=== PATIENT | female | born 1970 | race Two or more races ===

== ENCOUNTER 2019-05-21 07:59 | Outpatient (CLI) | payer OTHER | END 2019-05-21 08:40 | disposition home or self-care (01) | LOC: LAB 07:59 | DX: E03.8 Other specified hypothyroidism (principal); D89.0 Polyclonal hypergammaglobulinemia; I10 Essential (primary) hypertension; D51.3 Other dietary vitamin B12 deficiency anemia; D51.0 Vitamin B12 deficiency anemia due to intrinsic factor deficiency; D55.0 Anemia due to glucose-6-phosphate dehydrogenase [G6PD] deficiency; D51.1 Vitamin B12 deficiency anemia due to selective vitamin B12 malabsorption with proteinuria; E06.3 Autoimmune thyroiditis; D50.8 Other iron deficiency anemias; N95.1 Menopausal and female climacteric states; Z12.73 Encounter for screening for malignant neoplasm of ovary; E22.1 Hyperprolactinemia; Z12.11 Encounter for screening for malignant neoplasm of colon ==

== ENCOUNTER → 2019-07-03 10:11 | Outpatient (CLI) | payer OTHER | END | disposition home or self-care (01) | LOC: LAB 10:11 | DX: D89.0 Polyclonal hypergammaglobulinemia (principal); I10 Essential (primary) hypertension; D51.3 Other dietary vitamin B12 deficiency anemia; N95.1 Menopausal and female climacteric states ==

== ENCOUNTER → 2021-07-12 09:20 | Outpatient (CLI) | payer OTHER ==
[~2021-07-12 09:20] MED LIST: NEURONTIN300 MG PO
== END | disposition home or self-care (01) ==
LOC: LAB 09:20
PROVIDERS: ATTEND Internal Medicine Hematology & Oncology
DX: D50.8 Other iron deficiency anemias (principal); R79.89 Other specified abnormal findings of blood chemistry; I10 Essential (primary) hypertension; R74.02 Elevation of levels of lactic acid dehydrogenase [LDH]; K76.89 Other specified diseases of liver; E55.9 Vitamin D deficiency, unspecified; D89.0 Polyclonal hypergammaglobulinemia; D51.3 Other dietary vitamin B12 deficiency anemia